=== PATIENT | female | born 2005 | race Caucasian/White ===

== ENCOUNTER 2024-08-02 16:42 | Emergency (ER) | payer OTHER, SELFPAY ==
[2024-08-02 17:13] LABS: Pregnancy Test - Urine (BHCG) Negative (Negative); Pregu Control Background? CLEAR/WHITE (CLR/WHITE); Pregu Control Bar Appear? YES (CONTROL BAR); Specific Gravity 1.005 (1.002-1.036)
== END 2024-08-02 17:30 | disposition home or self-care (01) ==
LOC: CSHERS 16:42
DX: N92.6 Irregular menstruation, unspecified (principal)
CPT/HCPCS: 81025; 99282